=== PATIENT | female | born 1975 | race American Indian/Alaskan Native ===

== ENCOUNTER 2018-08-26 14:52 | Emergency (ER) | payer SELFPAY ==
[2018-08-26 15:32] VITALS: BP 134/95
--- NOTE | 2018-08-26 15:32 | Emergency Department Report ---
Blank Doc - Documentation Documentation: This is a 43-year-old female that presents with left knee pain s/p fall. Denies any other injuries. This initial assessment/diagnostic orders/clinical plan/treatment(s) is/are subject to change based on patient's health status, clinical progression and re- assessment by fellow clinical providers in the ED. Further treatment and workup at subsequent clinical providers discretion. Patient/guardians urged not to elope from the ED as their condition may be serious if not clinically assessed and managed. Initial orders include: 1- Patient sent to [facility] for further evaluation and treatment 2- xray
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
--- NOTE | 2018-08-26 17:31 | Emergency Department Report ---
ED Fall HPI - General Chief Complaint: Extremity Injury, Lower Stated Complaint: FALL/BUSTED (L) KNEE Time Seen by Provider: 08/26/18 15:30 Source: patient Mode of arrival: Ambulatory - History of Present Illness MD Complaint: fall -: days(s) (3) Fall From: standing Fall Witnessed: yes, by family Place Fall Occurred: home Loss of Consciousness: none Prolonged Down Time?: no Symptoms Prior to Fall: none Location - Extremities: Left: Knee Context: tripped/slipped - Related Data Previous Rx's Medication Instructions Recorded Last Taken Type Clindamycin [Clindamycin CAP] 300 mg PO Q6H #28 capsule 05/24/15 Unknown Rx EPINEPHrine [Epipen 2-Milton] 0.3 mg IM DAILY PRN #2 ml 05/24/15 Unknown Rx Famotidine [Pepcid] 20 mg PO BID #10 tablet 05/24/15 Unknown Rx Permethrin 5% [Acticin 5% CREAM] 1 applicatio TP ONCE #2 tube 05/24/15 Unknown Rx diphenhydrAMINE [Benadryl] 50 mg PO Q8HR PRN #20 capsule 05/24/15 Unknown Rx Allergies Allergy/AdvReac Type Severity Reaction Status Date / Time erythromycin base AdvReac Shortness Verified 05/24/15 15:40 of Breath ED Review of Systems ROS: Stated complaint: FALL/BUSTED (L) KNEE Other details as noted in HPI Comment: All other systems reviewed and negative Constitutional: denies: chills, fever Respiratory: denies: cough, shortness of breath Cardiovascular: denies: palpitations Gastrointestinal: denies: abdominal pain, nausea, vomiting Musculoskeletal: denies: back pain Neurological: denies: headache, weakness ED Past Medical Hx - Past Medical History Previous Medical History?: No - Surgical History Past Surgical History?: Yes Additional Surgical History: exploratory laproscopic surgery. - Social History Smoking Status: Current Every Day Smoker Substance Use Type: Alcohol - Medications Home Medications: Home Medications Medication Instructions Recorded Confirmed Last Taken Type Clindamycin [Clindamycin CAP] 300 mg PO Q6H #28 capsule 05/24/15 Unknown Rx EPINEPHrine [Epipen 2-Milton] 0.3 mg IM DAILY PRN #2 ml 05/24/15 Unknown Rx Famotidine [Pepcid] 20 mg PO BID #10 tablet 02/08/16 Unknown Rx Permethrin 5% [Acticin 5% CREAM] 1 applicatio TP ONCE #2 tube 05/24/15 Unknown Rx diphenhydrAMINE [Benadryl] 50 mg PO Q8HR PRN #20 capsule 05/24/15 Unknown Rx ED Physical Exam - General Limitations: No Limitations General appearance: alert, in no apparent distress - Head Head exam: Present: atraumatic, normocephalic, normal inspection - Eye Eye exam: Present: normal appearance, PERRL - ENT ENT exam: Present: normal exam, normal orophraynx, mucous membranes moist - Neck Neck exam: Present: normal inspection, full ROM. Absent: tenderness, meningismus, lymphadenopathy, thyromegaly - Respiratory Respiratory exam: Present: normal lung sounds bilaterally - Cardiovascular Cardiovascular Exam: Present: regular rate, normal rhythm, normal heart sounds - Expanded Lower Extremity Exam Left Knee exam: Present: full ROM, tenderness, swelling, abrasion. Absent: laceration, ecchymosis, deformity Lower Leg exam: Present: normal inspection, full ROM Foot/Toe exam: Present: normal inspection, full ROM. Absent: tenderness ED Course Vital Signs 08/26/18 15:30 Temperature 98.5 F Pulse Rate 75 Respiratory 16 Rate Blood Pressure 134/95 O2 Sat by Pulse 100 Oximetry ED Medical Decision Making - Radiology Data Radiology results: report reviewed Left knee x-ray is negative for acute finding. Critical care attestation.: If time is entered above; I have spent that time in minutes in the direct care of this critically ill patient, excluding procedure time. ED Disposition Clinical Impression: Contusion of left knee Disposition: DC-01 TO HOME OR SELFCARE Is pt being admited?: No Condition: Stable Instructions: Contusion in Adults (ED) Referrals: INDIRA LEE MD [Primary Care Provider] - 3-5 Days Forms: Work/School Release Form(ED)
[2018-08-26] MEDS: TORADOL IM ONE ×2 (17:48→17:52)
== END 2018-08-26 17:49 | disposition home or self-care (01) ==
LOC: ED 14:52
DX: S80.02XA Contusion of left knee, initial encounter (principal); F17.200 Nicotine dependence, unspecified, uncomplicated; Z79.899 Other long term (current) drug therapy; Z88.1 Allergy status to other antibiotic agents; W01.0XXA Fall on same level from slipping, tripping and stumbling without subsequent striking against object, initial encounter; Y93.89 Activity, other specified; Y92.89 Other specified places as the place of occurrence of the external cause; Y99.8 Other external cause status
CPT/HCPCS: 73562; 99283; J1885

== ENCOUNTER 2019-03-24 17:38 | Emergency (ER) | payer SELFPAY ==
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
[2019-03-24] MEDS ORDERED: ACETAMINOPHEN 325 MG TAB PO ONE (21:10)
[2019-03-24] MEDS ORDERED: ACETAMINOPHEN 325 MG TAB ONE (21:11)
[2019-03-25] MEDS ORDERED: oxyCODONE /ACETAMINOPHEN 5-325MG TAB PO ONE (00:33)
[2019-03-25] MEDS ORDERED: IBUPROFEN 800 MG TAB PO ONE (00:33)
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
[2019-03-25 01:16] VITALS: BP 137/84
== END 2019-03-25 01:17 | disposition home or self-care (01) ==
LOC: ED 17:38
DX: S20.212A Contusion of left front wall of thorax, initial encounter (principal); S06.899A Other specified intracranial injury with loss of consciousness of unspecified duration, initial encounter; Z79.899 Other long term (current) drug therapy; Z88.1 Allergy status to other antibiotic agents; Y04.2XXA Assault by strike against or bumped into by another person, initial encounter; Y93.89 Activity, other specified; Y92.89 Other specified places as the place of occurrence of the external cause; Y99.8 Other external cause status
CPT/HCPCS: 70450

== ENCOUNTER 2019-12-08 15:39 | Emergency (ER) | payer OTHER ==
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
[2019-12-08] MEDS ORDERED: IBUPROFEN 600 MG TAB PO ONE (19:51)
[2019-12-08] MEDS ORDERED: HYDROcodone/ACETAMINOPHEN 5-325 MG TAB PO ONE (19:51)
[2019-12-08] MEDS ORDERED: ONDANSETRON 4 MG ODT TAB PO ONE (19:57)
[2019-12-08] MEDS ORDERED: ONDANSETRON 4 MG ODT TAB ONE (19:59)
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
== END 2019-12-08 22:10 | disposition home or self-care (01) ==
LOC: EEVIPCON 15:39 → ED 15:39
DX: S22.39XA Fracture of one rib, unspecified side, initial encounter for closed fracture (principal); F17.200 Nicotine dependence, unspecified, uncomplicated; F12.90 Cannabis use, unspecified, uncomplicated; Z88.8 Allergy status to other drugs, medicaments and biological substances; Z79.899 Other long term (current) drug therapy; Z98.890 Other specified postprocedural states; Y04.8XXA Assault by other bodily force, initial encounter; Y93.89 Activity, other specified; Y92.89 Other specified places as the place of occurrence of the external cause; Y99.8 Other external cause status
CPT/HCPCS: 70450; 70486; Q0162